=== PATIENT | male | born 2005 | race Caucasian/White ===

== ENCOUNTER 2025-06-02 23:48 | Emergency (ER) | payer OTHER ==
[~2025-06-02] VITALS: Ht 190.5 cm; Wt 84.1 kg
[2025-06-03 05:34] VITALS: BP 130/61; TEMP 97.4; O2SAT 100
== END 2025-06-03 05:36 | disposition home or self-care (01) ==
LOC: M ED 23:48
DX: M48.061 Spinal stenosis, lumbar region without neurogenic claudication (principal); M51.26 Other intervertebral disc displacement, lumbar region; F17.210 Nicotine dependence, cigarettes, uncomplicated